=== PATIENT | male | born 1990 | race Caucasian/White ===

== ENCOUNTER 2018-04-26 15:06 | Emergency (ER) | payer SELFPAY ==
[2018-04-26 15:32] VITALS: BP 116/64; PULSE 57; TEMP 98.1; BMI 21.9
--- NOTE | 2018-04-26 15:46 | PDOC ---
History of Present Illness - General Chief Complaint: Pain Stated Complaint: FOOT PAIN Time Seen by Provider: 04/26/18 15:40 History Source: Patient Exam Limitations: No Limitations - History of Present Illness Initial Comments: 04/26/18 15:51 Patient here with complaints of fungal infection to all of his toes. 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 Has not tried any preparation, and does not have a private physician or insurance. Severity: reports: moderate Pain Location: reports: lower extremity (all of toes) Past History - Travel Traveled outside of the country in the last 30 days: No Close contact w/someone who was outside of country & ill: No - Past Medical History Allergies/Adverse Reactions: Allergies Allergy/AdvReac Type Severity Reaction Status Date / Time No Known Allergies Allergy Verified 04/26/18 15:28 Home Medications: Ambulatory Orders NK [No Known Home Medication] 04/26/18 COPD: No Other medical history: DENIES. - Suicide/Smoking/Psychosocial Hx Smoking History: Never smoked Trauma Specific PMHX - Complaint Specific PMHX Back Injury: No Neck Injury: No Review of Systems - Review of Systems Able to Perform ROS?: Yes Is the patient limited Ethiopian proficient: Yes Constitutional: Yes: See HPI. No: Symptoms Reported Integumentary: Yes: Symptoms Reported, See HPI, Lesions, Pruritus *Physical Exam - Vital Signs Last Vital Signs Temp Pulse Resp BP Pulse Ox 98.1 F 57 L 19 116/64 99 04/26/18 15:28 04/26/18 15:28 04/26/18 15:28 04/26/18 15:28 04/26/18 15:28 - Physical Exam General Appearance: Yes: Nourished, Appropriately Dressed, Apparent Distress Respiratory/Chest: positive: Lungs Clear Extremity: positive: Normal Capillary Refill, Normal Range of Motion, Other ( all toes with oncomycosis and deformity of nails , no erythema, purulent drainage, evidence of cellulitis.). negative: Normal Inspection Integumentary: positive: Warm, Other Neurologic: positive: us marketing director II-XII NML intact, Fully Oriented, Alert, Normal Mood/ Affect, Normal Response, Motor Strength 5/5 Progress Note - Progress Note Progress Note: Severe uncle mycosis, patient without insurance or private physician. Recommended [id number] treatment to initiate treatment including bleach soaks and candidal creams, Dr. Guzmán's treatment. Given phone number to [facility] to help initiate private physician interaction and possible insurance assistance *DC/Admit/Observation/Transfer Diagnosis at time of Disposition: Onychomycosis - Discharge Dispostion Disposition: HOME Condition at time of disposition: Stable Decision to Admit order: No - Referrals Referrals: [facility] [Provider Group] - Patient Instructions Printed Discharge Instructions: DI for Yeast Infection-Skin Additional Instructions: soak feet in 10%bleach solution: 1 gallon water to 1/2 cup of bleach 2 times a day until healed. May try Athletes Foot powders THis Problem is very difficult to treat and may take months with treatment to resolve. Followup with Clinic / Record [facility] for further treatment - Post Discharge Activity Forms/Work/School Notes: Back to Work
== END 2018-04-26 16:07 | disposition home or self-care (01) ==
LOC: JERFT 15:06
DX: B35.1 Tinea unguium (principal)
CPT/HCPCS: 99281-25